=== PATIENT | male | born 1960 | race Caucasian/White ===

== ENCOUNTER 2017-05-09 09:09 | Day surgery (SDC) | payer MEDICARE ==
[~2017-05-09 09:09] MED LIST: HYDROmorphone HCL 2 MG/ML VIAL IV PRN; RINGER'S SOLUTION,LACTATED 1,000 ML IV PRN; ceFAZolin SODIUM 1 GM VIAL IV PRN; oxyCODONE HCL/ACETAMINOPHEN 1 TAB TABLET PO PRN
[2017-05-09] MEDS ORDERED: RINGER'S SOLUTION,LACTATED 1,000 ML IV ONE ×2 (09:37→10:43)
[2017-05-09] MEDS ORDERED: BUPIVACAINE HCL 50 ML VIAL IJ ONE ×2 (10:20)
--- NOTE | 2017-05-09 11:26 | POSTOP NO ---
Date of Surgery: 05/09/17 Anesthesia: General Patient Tolerated the Procedure: Well Post Operative Diagnosis/Procedures: Laborer Wharf: Pete Hannon PA-C Post-operative Diagnosis: Severe hallux valgus and hallux rigidus right great toe, hammertoe deformity second and third toe Finding: Above Procedure: Right great toe metatarsal phalangeal joint arthrodesis, extensor tenotomy of second and third toe Estimated Blood Loss: Minimal Specimens: Cartilage for disposal
[2017-05-09] MEDS ORDERED: HYDROcodone/ACETAMINOPHEN 1 EACH TABLET PO PRN (12:13)
[2017-05-09 12:31] VITALS: BP 158/87
== END 2017-05-09 09:10 | disposition home or self-care (01) ==
LOC: AMB 09:09
PROVIDERS: ATTEND Orthopaedic Surgery
PROC: 0L8V3ZZ Division of Right Foot Tendon, Percutaneous Approach (ICD-10-PCS; 2017-05-09)
PROC: 0L8V3ZZ Division of Right Foot Tendon, Percutaneous Approach (ICD-10-PCS; 2017-05-09)
PROC: 0SGM04Z Fusion of Right Metatarsal-Phalangeal Joint with Internal Fixation Device, Open Approach (ICD-10-PCS; principal; 2017-05-09 11:30)
DX: M20.11 Hallux valgus (acquired), right foot (principal); M20.21 Hallux rigidus, right foot; M20.41 Other hammer toe(s) (acquired), right foot; I10 Essential (primary) hypertension; E78.5 Hyperlipidemia, unspecified; E03.9 Hypothyroidism, unspecified; G47.30 Sleep apnea, unspecified; E66.9 Obesity, unspecified; Z68.32 Body mass index [BMI] 32.0-32.9, adult; Z87.891 Personal history of nicotine dependence
CPT/HCPCS: 28010; 28750; C1713

== ENCOUNTER 2018-05-06 08:56 | Inpatient (IN) ==
[~2018-05-06 08:56] MED LIST changes: -HYDROmorphone HCL 2 MG/ML VIAL IV PRN; +MORPHINE SULFATE 15 MG TABLET.SA PO PRN; +TRANEXAMIC ACID 1,000 MG in NORMAL SALINE 100 ML IV PRN; -oxyCODONE HCL/ACETAMINOPHEN 1 TAB TABLET PO PRN
--- NOTE | 2018-05-06 11:21 | ANES ---
Anesthesia Pre Procedure Eval Vitals/Labs: Last Vital Signs Temp 36.9 C 05/06/18 09:08 Resp 16 05/06/18 09:08 BP 139/99 H 05/06/18 09:08 Pulse Ox 98 05/06/18 09:08 HOME MEDICATIONS Docusate Sodium [Colace] 100 mg PO HS PRN 04/20/17 [Last Taken Unknown] Potassium Chloride [Klor-Con 10] 10 meq PO DAILY 04/20/17 [Last Taken Unknown] amlodipine 5 mg tablet 5 mg PO HS #90 tab 01/18/18 [Last Taken Unknown] labetalol 200 mg tablet 400 mg PO BID #180 tab 01/18/18 [Last Taken Unknown] levothyroxine 200 mcg tablet 200 mcg PO DAILY #90 tab 01/18/18 [Last Taken Unknown] lisinopril 40 mg tablet 40 mg PO DAILY #90 tab 01/18/18 [Last Taken Unknown] lovastatin 20 mg tablet 20 mg PO HS #90 tab 01/18/18 [Last Taken Unknown] omeprazole 20 mg tablet,delayed release 20 mg PO DAILY #90 tab 01/18/18 [Last Taken Unknown] cyclobenzaprine 10 mg tablet 10 mg PO TID PRN 01/30/18 [Last Taken Unknown] tizanidine 4 mg capsule 4 mg PO BID PRN #60 cap 04/08/18 [Last Taken Unknown] fluoxetine 20 mg capsule 20 mg PO DAILY #30 cap 04/29/18 [Last Taken Unknown] hydrochlorothiazide 25 mg tablet 25 mg PO DAILY #90 tab 04/29/18 [Last Taken Unknown] hydrocodone 5 mg-acetaminophen 325 mg tablet 1 tab PO .COMPLEX PRN #14 tab 04/30/18 [Last Taken Unknown] Allergies/Adverse Reactions: Allergies Allergy/AdvReac Type Severity Reaction Status Date / Time furosemide Allergy Intermediate hearing Verified 05/06/18 09:12 loss Penicillins Allergy Mild Hives Verified 04/16/18 10:36 oxycodone [From Percocet] Allergy hives Verified 04/16/18 10:36 atorvastatin AdvReac Mild muscle Verified 04/16/18 10:36 aches sulfamethoxazole AdvReac Mild nausea, Verified 04/16/18 10:36 [From Bactrim DS] dizziness, aches - Planned Procedure Planned Procedure: Left Reverse Total Shoulder Medication List Reviewed:: Yes Allergies Verified: Yes Medical History (Last Reviewed 05/06/18 @ 11:15 by Heriberto Shelton CRNA) Anxiety Onset Date: Unknown Lucero's palsy Onset Date: Unknown Depression Onset Date: ~1999 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 Diarrhea Onset Date: ~09/04/12 Great toe pain Onset Date: Unknown right Headache Onset Date: Unknown Hyperlipidemia Onset Date: ~2006 Hypertension Onset Date: Unknown Hypothyroidism Onset Date: ~04/01/15 Lymphadenitis Onset Date: Unknown Myalgia Onset Date: Unknown Obesity Onset Date: Unknown Sexual dysfunction Onset Date: Unknown Shoulder pain Onset Date: ~11/26/12 right rotator cuff tear Sinusitis Onset Date: ~05/27/12 Sleep apnea Onset Date: Unknown Uses hearing aid Wrist pain Onset Date: ~09/11/12 right wrist fracture Surgical History (Last Reviewed 05/06/18 @ 11:16 by Heriberto Shelton CRNA) H/O arthroscopy of right knee Onset Date: ~2008 [facility] H/O foot surgery Onset Date: ~05/09/17 right great toe metatarsal phalangeal joint arthrodesis, extensor tenotomy of second and third toe per Dr. Jones History of arthroscopy of right shoulder Onset Date: ~12/06/12 History of cochlear implant Onset Date: ~05/06/14 left side History of hip replacement Onset Date: ~01/05/14 left, right 2010 History of open reduction and internal fixation (ORIF) procedure Onset Date: ~09/13/12 right wrist S/P cubital tunnel release Onset Date: ~04/06/14 Dr. Jones Family History (Last Reviewed 05/06/18 @ 11:16 by Heriberto Shelton CRNA) Father Cancer lymphoma Mother , 71 Cancer lung Brother Heart disease Sister Cancer Son Alive and well x's 2 - Family Anesthesia History Family History:: no untoward family reactions to anesthesia, no familial bleeding tendencies, no family history of clotting disorders, no family history of premature - Airway/Neck/Teeth Within Normal Limits:: Yes Teeth Condition: Intact, Stained, Broken Neck Exam: non-tender, full range of motion Mallampatti Score: 2 Thyromental (T-M) distance: > 6 cm Mandibulo Hyoid distance: > 3 cm - Respiratory Respiratory: chest non-tender, lungs clear Smoking Status: Former smoker - currently chews 5 tins per week Discussed smoking cessation including day of surgery: No Sleep Apnea currently treated: Yes - refuses to wear CPAP Sleep Apnea by current assessment: Yes Discussed Risks/Treatment of SHILO: Yes - Cardiovascular Patient History - Cardiac/Respiratory: Hypertension, Hyperlipidemia Tolerates Activity: Fair Heart Sounds: S1 & S2, Regular - Anesthesia Assessment and Plan ASA Class: PS, II, III, E Anesthesia Type Plan: General LMA, Block - interscalene block for post op pain relief Planned difficult intubation/equipment available: No
--- NOTE | 2018-05-06 13:53 | OR ---
Operative Report - Dictated Report Narrative: Date: 05/06/2018 Physician: Pepe Jones M.D. Advertising Supervisor: Pete Hannon PA-C (provided a set of educated skilled hands which assisted with transfer, positioning, draping, prepping, retraction, exposure, manipulation, closure wounds, and dressings all of which can performed by the available surgical crew) Preoperative diagnosis: Left Shoulder Rotator Cuff Deficient Arthritis Postoperative diagnosis: Left Shoulder Rotator Cuff Deficient Arthritis Procedure: Reverse left total shoulder arthroplasty Anesthesia: General plus regional Complications: None Estimated blood loss: 50 Milliliters Specimens: Bone for disposal Retained implants: Depuy Global Unite Porocoat Size 12 standard stem, Delta Xtend Cementless Modular Centered Epiphysis Size 2, Delta Xtend size 38 + 9 humeral PE cup, Delta Xtend size 38 Glenosphere, Delta Xtend Cementless BALDERRAMA coated centered Metaglene, 4.5 mm Delta Xtend locking screws 36mm x 2, 4.5 mm Delta Xtend size 18mm x 2 screws Drains: None Indications: Mr. Oliver Is a 58-year-old gentleman who has been followed in my clinic with complaints of shoulder pain consistent rotator cuff deficient arthrosis. Physical exam and diagnostic imaging were consistent with his complaints and concern for chronic rotator cuff deficiency and glenohumeral arthrosis in the left shoulder. Conservative measures have failed including, but not limited to, passage of time, activity modification, medications, physical therapy/home exercise program, or injections. The risks, benefits, and alternatives were discussed in clinic. The risks being , bleeding, infection, blood clots, nerve, tendon, ligament, blood vessel injury, instability, malposition of implants, wear, persistent pain, arthrosis, stiffness, need for prolonged therapy, need for additional procedures, and persistent symptoms. Consent was obtained in the clinic. Procedure: After marking the correct extremity on the floor, a timeout was performed in the operating room. IV antibiotics consisting of Ancef were administered prior to the procedure. A general followed by regional anesthetic was induced by the nurse stiff leg derrick operator per my request. This was in the supine position, then the patient was transitioned to a beachchair position with all bony prominences well-padded, head in neutral, the nonoperative arm well supported, and the legs padded with SCDs in place. The operative shoulder was then prepped and draped in a standard sterile fashion. A standard deltopectoral incision was then made. Blunt dissection was carried through the subcutaneous fat in order to encounter the cephalic vein. Cephalic vein was then mobilized in order to pass through the deltopectoral interval. The superior aspect of the pectoralis was released off the humerus. The underlying fascia was elevated exposing the subscapularis tendon. The subscapularis was then tagged and reflected off of the anterior humerus splitting this into the joint. The long head of the biceps was tenotomized and the shoulder was dislocated. A soft tissue release around the inferior and posterior aspect of the humeral head was performed in order to improve the visualization of the proximal humerus. An entry drill was then placed into the humeral head passing down the humeral shaft just onto the articular surface medial to the greater tuberosity. A series of reamers up to a size 12 were utilized. Next a standard neck cut was made utilizing the outrigger and 10 of retroversion. The osteophytes and excessive bone around the neck and head were then rongeured and the cap was placed over the cut proximal humerus. There was notable significant arthrosis of the humeral head. Next attention was turned to the glenoid. The remaining labrum and soft tissues were mobilized off the glenoid and surrounding neck. This allowed for adequate exposure and visualization of the arthritic glenoid. Retractors were then placed in order to expose the glenoid. Utilizing the guide handle a guide wire was placed into the glenoid. This was placed in a slightly inferior posterior position ensuring that this was directed in an inferior angle compared to the face of the glenoid. The circular followed by eccentric reamer was utilized in order to expose the glenoid face down to a subchondral surface which was smooth. Next the central peg was drilled ensuring that there was bone circumferentially. The metaglene was then impacted in the place seating completely. The superior and inferior screw holes were drilled and measured and securely placed. The anterior and posterior nonlocking screws were then drilled and placed and then the superior and inferior locking screws were locked in to place. A size 38mm standard Glenosphere was then placed onto the metaglene and the screw was tightened while sequentially impacting and tightening ensuring that the Glenopher was securely seated. Attention was then returned to the humerus. While retracting the surrounding soft tissues, the proximal reaming broach was impacted in the previously cut 10 retroversion manner. A standard reamer was utilized in order to prepare the proximal humerus. This was done utilizing the offset guide. The remaining bone off the center aspect of the proximal humerus was rongeured and the trial stem was then impacted in 10 of retroversion. A series of spacers were utilized finding that a 9 spacer gave appropriate stability. Longitudinal traction resulted in minimal translation. The co njoined tendon was under tension. She was able to reach 90 of abduction and external rotation. Forward flexion was greater than 140 and she was able to adduct fully without impinging onto the scapular neck. Once was felt that we had the appropriate sized implants the shoulder was dislocated and the proximal humerus was thoroughly irrigated. The final implants were assembled on the back table and impacted into place seating completely. We re-trialed the spacers confirming that we had the appropriate sized spacer and the final polyethylene was then impacted into place. Shoulder was reduced and again was noted to be stable through multiple positions. The wounds were then thoroughly irrigated. The subscapularis was repaired with #1 Ethibond. The deltopectoral interval was closed with running 0 Vicryl. Subcutaneous tissues closed with 0 Vicryl. The skin was closed with running 3-0 Vicryl and yunior. Xeroform, 4 x 4s, and a Tegaderm was applied. The patient was then awoken and transferred to postanesthesia care in stable condition. All sponge, needle, and instrument counts were correct prior close the wounds. Dressings consisting of Xeroform, 4 x 4, ABD, soft roll, and tape were applied. All sponge, needle, blade, and instrument counts were correct prior to closing the wounds. The patient was awoken and transferred to the postanesthesia care unit in stable condition.
[2018-05-06] MEDS ORDERED: ACETAMINOPHEN 500 MG TABLET PO PRN (13:54)
[2018-05-06] MEDS ORDERED: DEXTROSE 5%-LACTATED RINGERS 1,000 ML IV PRN (13:54)
[2018-05-06] MEDS ORDERED: MORPHINE SULFATE 2 MG/ML DISP.SYRIN IV PRN (13:54)
[2018-05-06] MEDS ORDERED: diphenhydrAMINE HCL 50 MG/ML VIAL IV PRN (13:54)
[2018-05-06] MEDS ORDERED: ONDANSETRON HCL/PF 2 MG/ML VIAL IV PRN (13:54)
[2018-05-06] MEDS ORDERED: MAGNESIUM HYDROXIDE 30 ML UDC PO PRN (13:54)
[2018-05-06] MEDS ORDERED: ZOLPIDEM TARTRATE 5 MG TABLET PO PRN (13:54)
[2018-05-06] MEDS ORDERED: MAG HYDROX/ALUMINUM HYD/SIMETH 30 ML UDC PO PRN (13:54)
[2018-05-06] MEDS ORDERED: CYCLOBENZAPRINE HCL 10 MG TABLET PO PRN (13:57)
[2018-05-06] MEDS ORDERED: DOCUSATE SODIUM 100 MG CAPSULE PO PRN (13:57)
--- NOTE | 2018-05-06 14:11 | ANES ---
Post Anesthesia Discharge - Transfer of Care Transfer of Care handoff given to nurse: Yes - Discharge from PACU Discharge from PACU when meets criteria: Yes - Comfortable in PACU.
--- NOTE | 2018-05-06 14:11 | ANES ---
Anesthesia Procedure Note Procedure Note: ANESTHESIA PROCEDURE NOTE Date of Procedure: 05/06/2018 Time of procedure: 11:40 AM. Performed by: Heriberto Shelton CRNA, MSN Snapper On: Narda De Leon RN. Preprocedure diagnosis: Left rotator cuff arthropathy. Post procedure diagnosis: Same. Procedure: Left Interscalene nerve block. Indications: Post left reverse total shoulder replacement pain relief. Findings: See below. Details of the procedure: The patient was brought to OR #2 and placed in semi- Fowlers position. The patient was prepped with chlorhexidine and using ultrasound guidance the left interscalene level of the brachial plexus was identified and lidocaine 1% was infiltrated to the skin of the intended injection site. Under ultrasound guidance the interscalene nerve bundles of the brachial plexus were approached with visualization of a 2 inch stimulator needle visualized unde ultrasound until a shoulder/arm response was identified on nerve stimulator. Once the stimulator response was effective at less than 0.5 mV and greater than 0.3 mV the brachial plexus nerves at this level were surrounded with 30 mL bupivacaine 0.25% with 1-200,000 epinephrine. Please see radiology/ultrasound report for details and retained images of the procedure. EBL: 0 Fluids: N/A. Specimen: N/A. Post procedure condition: The patient tolerated the procedure well. No complications were noted. Thank you for this consultation. Heriberto Shelton CRNA, MSN
--- NOTE | 2018-05-06 14:36 | ANES ---
Post Anesthesia Assessment - Vital Signs Vitals: Last Vital Signs Temp 37.4 C 05/06/18 14:30 Pulse 83 05/06/18 14:30 Resp 20 05/06/18 14:30 BP 167/93 H 05/06/18 14:30 Pulse Ox 95 05/06/18 14:30 Airway Patency: Normal - Mental Status Level Of Consciousness: Awake, Alert, Appropriate - Pain Level Pain Score: 0 - N/V Assessment Nausea/Vomiting Presence: None Dehydration:: No
[2018-05-06] MEDS: KETOROLAC TROMETHAMINE 15 MG/ML VIAL IV SCH ×2 (14:54→20:38)
[2018-05-06] MEDS: ceFAZolin SODIUM 1 GM in DEXTROSE 5 % IN WATER 100 ML IV SCH ×4 (14:58→22:48)
[2018-05-06] MEDS ORDERED: LISINOPRIL 40 MG TABLET PO SCH (15:15)
[2018-05-06] MEDS: amLODIPine BESYLATE 5 MG TABLET PO SCH ×2 (18:19→22:46)
[2018-05-06] MEDS: LABETALOL HCL 200 MG TABLET PO SCH ×2 (18:30→22:46)
[2018-05-06] MEDS: MORPHINE SULFATE 15 MG TABLET.SA PO SCH (20:37)
[2018-05-06] MEDS ORDERED: LABETALOL HCL 200 MG TABLET PO SCH ×2 (21:00)
[2018-05-06] MEDS ORDERED: SENNOSIDES/DOCUSATE SODIUM 1 TAB TABLET PO SCH (21:00)
[2018-05-06] MEDS ORDERED: SIMVASTATIN 10 MG TABLET PO SCH (21:00)
[2018-05-07] MEDS: KETOROLAC TROMETHAMINE 15 MG/ML VIAL IV SCH ×2 (02:58→09:04)
[2018-05-07] MEDS: ceFAZolin SODIUM 1 GM in DEXTROSE 5 % IN WATER 100 ML IV SCH ×2 (03:00)
[2018-05-07] MEDS: MORPHINE SULFATE 10 MG/0.5 ML SYRINGE PO PRN ×4 (04:55→13:08)
[2018-05-07 05:23] LABS: Hematocrit 43.9 % (42.0-52.0); Hemoglobin 14.7 gm/dL (13.5-18.0); Mean Cell Volume 92.6 fl (78-100); Mean Corpuscular Hgb Conc 33.5 g/dl (32-36); Mean Platelet Volume 9.2 fl (8-11.3); Platelet Count 317 K/mm3 (150-450); Red Blood Count 4.74 M/mm3 (4.7-6.0); Red Cell Distribution Width 12.6 % (11.5-14.0); White Blood Count 21.1 K/mm3 (4.0-10.5)
[2018-05-07 05:45] LABS: Anion Gap 12.6 mmol/L (6.8-13.8); BUN/Creatinine Ratio 17.4 (9.0-21.6); Calcium * 8.4 mg/dL (7.9-10.9); Carbon Dioxide 29.2 mmol/L (24-32.6); Estimated Creat Clear 75.5; Potassium 3.8 mmol/L (3.4-4.6)
[2018-05-07] MEDS ORDERED: LEVOTHYROXINE SODIUM 100 MCG TABLET PO SCH (07:00)
[2018-05-07] MEDS ORDERED: PANTOPRAZOLE SODIUM 20 MG TABLET.DR PO SCH (07:00)
[2018-05-07] MEDS: FLUoxetine HCL 20 MG CAPSULE PO SCH ×2 (07:17→09:00)
[2018-05-07] MEDS: LABETALOL HCL 200 MG TABLET PO SCH ×2 (07:18→09:00)
[2018-05-07] MEDS: POTASSIUM CHLORIDE 10 MEQ TABLET.SA PO SCH ×2 (07:18→09:00)
[2018-05-07] MEDS: HYDROCHLOROTHIAZIDE 25 MG TABLET PO SCH ×2 (07:19→10:57)
[2018-05-07] MEDS ORDERED: HYDROCHLOROTHIAZIDE 25 MG TABLET PO SCH (09:00)
[2018-05-07] MEDS ORDERED: LISINOPRIL 40 MG TABLET PO SCH (09:00)
[2018-05-07] MEDS: MORPHINE SULFATE 15 MG TABLET.SA PO SCH (09:02)
--- NOTE | 2018-05-07 12:14 | DS ---
(1) Status post reverse total arthroplasty of left shoulder Problem: Acute (2) Rotator cuff arthropathy Problem: Chronic Qualifiers: Laterality: left (3) Depression Problem: Chronic (4) Hypothyroid Problem: Chronic (5) Hypertension Problem: Chronic (6) Hyperlipemia Problem: Chronic (7) Insomnia Problem: Chronic (8) Hypokalemia Problem: Chronic (9) Chronic pain Problem: Chronic Description of Stay: Mr. Oliver was admitted to the floor after undergoing left reverse total shoulder arthroplasty. Tolerated this well. Was admitted to the floor postope ratively for 24 hours of IV antibiotics, pain control, medical comanagement, and occupational and physical therapy. OT and PT were consulted to assist with activities of daily living and ambulation. Was made weightbearing as tolerated with range of motion as tolerated. Pain was initially controlled with IV regimen. This was transitioned to oral once tolerating a by mouth intake. Was resumed on home diet and medications. Aspirin, SCD were utilized for DVT prophylaxis. Vital signs remained stable to the hospital course. Labs were obtained which showed a final hemoglobin of 14.7 grams. BMP was reviewed and was stable. Physical examination throughout the hospital course showed an extremity that had sensation that was intact to light touch, palpable pulses, a benign wound, motor intact to the hand and wrist and elbow. Once an oral pain regimen was tolerated and physical therapy goals were met, it was felt that they were stable for discharge to home. Instructions: Continue with nonweightbearing and no passive internal or external rotation. Okay for active assisted forward flexion and abduction. Do not bathe or soak the wound. If there is any drainage from the wound keep the wound clean and dry and cover with dry gauze and tape. Cover wound while showering. Continue with physical therapy. Resume home diet. Report any fever over 101.5 Fahrenheit, uncontrolled pain, increased drainage, foul odor of drainage, new or increased calf pain or shortness of breath, or any other significant complaints. 325mg twice dialy aspirin . Follow up in approximately 10-14 days. Procedures Performed: see notes below List Procedures: Left reverse total shoulder arthroplasty Results and Findings: Lab Pending Results 05/07/18 05:05: WBC 21.1 H, RBC 4.74, Hgb 14.7, Hct 43.9, MCV 92.6, MCH 31.0, MCHC 33.5, RDW 12.6, Plt Count 317, MPV 9.2 05/07/18 05:05: Sodium 140, Plasma Sodium 140, Potassium 3.8, Chloride 102, Carbon Dioxide 29.2, Anion Gap 12.6, BUN 21, Creatinine 1.21, Est GFR (Non-Af Amer) 65, BUN/Creatinine Ratio 17.4, Random Glucose 126 H, Calcium 8.4 Discharge Location: Home Disposition: Home self-care Condition: Good Discharge Activity: Non-Weight bearing, Other - range of motion per protocol Discharge Diet: General/regular food Referrals: Jen Evangelista MD [Primary Care Provider] - Prescriptions (Any new or edited meds): RX: Morphine Sulfate 1 - 2 tab PO Q4H PRN #80 tab PRN Reason: Pain RX: Morphine Sulfate [Ms Contin] 15 mg PO Q12H #20 tablet.sa Complete Home Medications List: Complete Home Medication List: RX: Docusate Sodium [Colace] 100 mg PO HS PRN 04/20/17 RX: Potassium Chloride [Klor-Con 10] 10 meq PO DAILY 04/20/17 amlodipine 5 mg tablet 5 mg PO HS #90 tab 01/18/18 labetalol 200 mg tablet 400 mg PO BID #180 tab 01/18/18 levothyroxine 200 mcg tablet 200 mcg PO DAILY #90 tab 01/18/18 lisinopril 40 mg tablet 40 mg PO DAILY #90 tab 01/18/18 lovastatin 20 mg tablet 20 mg PO HS #90 tab 01/18/18 omeprazole 20 mg tablet,delayed release 20 mg PO DAILY #90 tab 01/18/18 cyclobenzaprine 10 mg tablet 10 mg PO TID PRN 01/30/18 tizanidine 4 mg capsule 4 mg PO BID PRN #60 cap 04/08/18 fluoxetine 20 mg capsule 20 mg PO DAILY #30 cap 04/29/18 hydrochlorothiazide 25 mg tablet 25 mg PO DAILY #90 tab 04/29/18 RX: Aspirin [Aspirin Enteric Coated] 325 mg PO BID tablet. 05/07/18 RX: Morphine Sulfate 1 - 2 tab PO Q4H PRN #80 tab 05/07/18 RX: Morphine Sulfate [Ms Contin] 15 mg PO Q12H #20 tablet. 05/07/18 Amb Orders for Discharge: PT Evaluation and Treatment* Facility: [facility], Location: Rehabilitation Services
[2018-05-07 13:57] VITALS: BP 141/67
[2018-05-08] MEDS ORDERED: ASPIRIN 325 MG TABLET.DR PO SCH (21:00)
== END 2018-05-07 14:30 | disposition home or self-care (01) | DRG 483 ==
LOC: MS 08:56
PROVIDERS: ADMIT Orthopaedic Surgery; ATTEND Orthopaedic Surgery
CPT/HCPCS: 36415; 73030; 80048; 85027; 97110; 97116; 97140; 97161; 97166